=== PATIENT | male | born 2000 | race American Indian/Alaskan Native ===

== ENCOUNTER 2018-09-26 13:16 | Emergency (ER) | payer BC ==
--- NOTE | 2018-09-26 13:38 | Emergency Department Report ---
Blank Doc - Documentation Documentation: This is a [id number] that presents with sore throat. This initial assessment/diagnostic orders/clinical plan/treatment(s) is/are subject to change based on patient's health status, clinical progression and re- assessment by fellow clinical providers in the ED. Further treatment and workup at subsequent clinical providers discretion. Patient/guardians urged not to elope from the ED as their condition may be serious if not clinically assessed and managed. Initial orders include: 1- Patient sent to [facility] for further evaluation and treatment 2- strep swab
--- NOTE | 2018-09-26 14:14 | Emergency Department Report ---
Minor Respiratory - HPI Chief Complaint: Sore Throat Stated Complaint: TONSIL PAIN/DIFFICULTY SWOLLOWING Time Seen by Provider: 09/26/18 13:37 Duration: 3 Days Pain Location: Throat Severity: mild Minor Respiratory: Yes Sore Throat, Yes Able to Tolerate Fluids, No Rhinorrhea, No Ear Pain, No Cough, No Sick Contacts, No Hemoptysis, No Chest Pain, No Shortness of Breath, No Fever Other History: She is a pleasant 17-year-old male who comes to the ER today with a history of sore throat for several days. He states he feels like his throat is swollen. He has no rash. No shortness of breath or chest pain. Patient does have a history of asthma. He is on no home medications. He is accompanied here by his mother. ED Review of Systems ROS: Stated complaint: TONSIL PAIN/DIFFICULTY SWOLLOWING Other details as noted in HPI Comment: All other systems reviewed and negative Constitutional: denies: chills, fever Eyes: denies: eye pain ENT: as per HPI, throat pain Respiratory: denies: see HPI Cardiovascular: denies: chest pain Endocrine: denies: flushing Gastrointestinal: denies: abdominal pain Genitourinary: denies: urgency Musculoskeletal: denies: back pain Skin: denies: rash Neurological: denies: weakness Psychiatric: denies: anxiety Hematological/Lymphatic: denies: easy bleeding ED Past Medical Hx - Past Medical History Previous Medical History?: Yes Hx Asthma: Yes - Surgical History Past Surgical History?: No - Family History Family history: no significant - Social History Smoking Status: Never Smoker Substance Use Type: Marijuana - Medications Home Medications: Home Medications Medication Instructions Recorded Confirmed Last Taken Type Amoxicillin 500 mg PO BID #20 capsule 09/26/18 Unknown Rx Minor Respiratory Exam - Exam General: Vital signs noted. No distress. Alert and acting appropriately. HEENT: Yes Pharyngeal Erythema, Yes Moist Mucous Membranes, No Pharyngeal Exudates, No Rhinorrhea, No Conjuctival Injection, No Frontal Tenderness, No Maxillary Tenderness Ear: Neither TM Bulge, Neither TM Erythema, Neither EAC Pain, Neither EAC Discharge Neck: Yes Supple, No Adenopathy Lungs: Yes Good Air Exchange, No Wheezes, No Ronchi, No Stridor, No Cough, No Labored Respirations, No Retractions, No Use of Accessory Muscles, No Other Abnormal Lung Sounds Heart: Yes Regular, No Murmur Abdomen: Yes Normal Bowel Sounds, No Tenderness, No Peritoneal Signs Skin: No Rash, No Edema Neurologic: Alert and oriented, no deficits. Musculoskeletal: Unremarkable. ED Course Vital Signs 09/26/18 13:37 Temperature 97.9 F Pulse Rate 75 Respiratory 18 Rate Blood Pressure 122/87 O2 Sat by Pulse 98 Oximetry ED Medical Decision Making - Medical Decision Making Vital Signs 09/26/18 13:37 Temperature 97.9 F Pulse Rate 75 Respiratory 18 Rate Blood Pressure 122/87 O2 Sat by Pulse 98 Oximetry taking po ambulatory non toxic no fever strep results-neg no wheezing dc home with amox and pcp follow up Critical care attestation.: If time is entered above; I have spent that time in minutes in the direct care of this critically ill patient, excluding procedure time. ED Disposition Clinical Impression: Pharyngitis Disposition: DC-01 TO HOME OR SELFCARE Is pt being admited?: No Does the pt Need Aspirin: No Condition: Stable Instructions: Pharyngitis (ED) Additional Instructions: motrin or tylenol for fever med as ordered today hydrate well with water follow up with pcp next week if persists referral below Prescriptions: Amoxicillin 500 mg PO BID #20 capsule Referrals: [facility] [Outside] - 3-5 Days Time of Disposition: 14:15
[2018-09-26] MEDS ORDERED: TRIMOX PO ONE (14:15)
[2018-09-26] MEDS ORDERED: DECADRON IM ONE (14:15)
[2018-09-26 14:38] VITALS: BP 119/72
== END 2018-09-26 14:35 | disposition home or self-care (01) ==
LOC: ED 13:16
DX: J02.9 Acute pharyngitis, unspecified (principal); J45.909 Unspecified asthma, uncomplicated; F12.10 Cannabis abuse, uncomplicated
CPT/HCPCS: 87116; 87430; 96372; 99283; J1100